=== PATIENT | female | born 1985 | race Caucasian/White ===

== ENCOUNTER 2018-04-15 20:47 | Inpatient (IN) | payer OTHER ==
[2018-04-15] MEDS ORDERED: Oxytocin 10 Units/1 ML SDV ONE (20:56)
--- NOTE | 2018-04-15 21:57 | PCM.DEL ---
L & D Note - General Info Date of Service: 04/15/18 - Delivery Note Labor: Spontaneous Delivery Outcome: Livebirth Infant Delivery Method: Spontaneous Vaginal Delivery-Single Infant Delivery Mode: Spontaneous Presentation: Vertex Nuchal Cord: None Prep: Other Anesthesia Type: None Amniotic Fluid Description: Clear Episiotomy Type: None Laceration: None Placenta: Intact Cord: 3 Vessels Estimated Blood Loss: 100 Score 1 min: 9 Score 5 min: 9 - General Info Date of Service: 04/15/18 - Patient Data Med Orders - Current: Current Medications Discontinued Medications Oxytocin (Pitocin) Confirm Administered Dose 10 unit .ROUTE .STK-MED ONE Stop: 04/15/18 20:57 - Problem List & Annotations (1) Vaginal delivery SNOMED Code(s): 969415536 Code(s): O80 - ENCOUNTER FOR FULL-TERM UNCOMPLICATED DELIVERY Status: Acute Current Visit: No - Problem List Review Problem List Initiated/Reviewed/Updated: Yes
[2018-04-15] MEDS ORDERED: oxyCODONE 5 MG Tab PO PRN ×2 (21:58→22:14)
[2018-04-15] MEDS ORDERED: Ibuprofen 800 MG Tab PO PRN (21:58)
[2018-04-15] MEDS ORDERED: Lanolin 100% Cream 7 GM Tube TOP PRN (21:58)
[2018-04-15] MEDS ORDERED: Ibuprofen 400 MG Tab PO PRN (21:58)
[2018-04-15] MEDS ORDERED: Docusate Sodium 100 MG Cap PO PRN (21:58)
[2018-04-15] MEDS ORDERED: Bisacodyl 10 MG Supp RECTAL PRN (21:58)
[2018-04-15] MEDS ORDERED: Acetaminophen 500 MG Tab PO PRN ×2 (21:58)
[2018-04-15] MEDS ORDERED: Witch Hazel Medicated Pads 40/Jar TOP PRN (21:58)
[2018-04-15] MEDS ORDERED: Benzocaine/Menthol 20%-0.5% Spray 78 GM Cannister TOP PRN (21:58)
[2018-04-15] MEDS ORDERED: Sodium Chloride 0.9% 2.5 ML Syringe FLUSH PRN (21:59)
[2018-04-15] MEDS ORDERED: Misoprostol 200 MCG Tab PO PRN (21:59)
[2018-04-15] MEDS ORDERED: Sodium Chloride 0.9% 10 ML Syringe FLUSH PRN (21:59)
[2018-04-15] MEDS ORDERED: Nalbuphine 10 MG/1 ML Vial IVPUSH PRN (21:59)
[2018-04-15] MEDS ORDERED: Butorphanol 1 MG/ML SDV IVPUSH PRN (21:59)
[2018-04-15] MEDS ORDERED: Tranexamic Acid 1,000 MG in Sodium Chloride 0.9% 100 ML IV PRN (21:59)
[2018-04-15] MEDS ORDERED: Methylergonovine 0.2 MG/1 ML Amp IM PRN (21:59)
[2018-04-15] MEDS ORDERED: Carboprost Tromethamine 250 MCG/1 ML Amp IM PRN (21:59)
[2018-04-15] MEDS ORDERED: Lidocaine 1% 50 ML MDV INJECT PRN (21:59)
[2018-04-15] MEDS ORDERED: Water For Irrigation,Sterile 1,000 ML Container IRR PRN (21:59)
[2018-04-15] MEDS ORDERED: Oxytocin/0.9 % Sodium Chloride 30 UNIT/500 ML BAG IV SCH (22:00)
[2018-04-15] MEDS ORDERED: Lactated Ringers 1,000 ML IV SCH (22:00)
--- NOTE | 2018-04-16 04:30 | OR ---
SURGEON: Mayte Palomares MD DATE OF PROCEDURE: 04/15/2018 PREOPERATIVE DIAGNOSES: 1. Term at 39 weeks and 4 days' gestation. 2. Spontaneous labor. POSTOPERATIVE DIAGNOSES: 1. Term at 39 weeks and 4 days' gestation. 2. Spontaneous labor. 3. Delivered. PROCEDURE: Spontaneous vaginal delivery. ANESTHESIA: None. ESTIMATED BLOOD LOSS: 100 mL. COMPLICATIONS: None. DISPOSITION: Mother and baby stable in Labor and Delivery room. FINDINGS: Female , weight 3080 g, score 9 and 9 at one and five minutes respectively. Grossly normal placenta with three-vessel cord. Intact perineum. BRIEF HISTORY AND DESCRIPTION OF PROCEDURE: Susanne is a 32-year-old, G3, P1-0-1-1, 39 weeks and 4 days' gestation who presented to Labor and Delivery at 2045 hours on 04/15/18 in spontaneous active labor, reporting spontaneous rupture of membrane which occurred in the car 10 minutes prior to admission. On arrival to Labor and Delivery, she was examined by the RN, and she was found to be fully dilated with the head at station +3. Her care is uncomplicated.GBS negative. I was called at 2046 hours and upon my arrival at 2057 hours, the patient had delivered at 0 hours, so she delivered approximately 5 minutes upon arrival to Labor and Delivery. The delivery was attended to by the RN, who reported that the delivery was uncomplicated, no nuchal cord, anterior and posterior shoulders delivered without difficulty and the baby was vigorous and cried spontaneously at . The patient had received a dose of oxytocin 10IU IM by the time I arrived. I examined her and delivered placenta by controlled cord traction, appeared to be complete and intact. Uterine massage was performed.The uterus was found to be well contracted below the umbilicus. Examination of the perineum revealed no lacerations. Mother and baby were stable in Labor and Delivery room, bonding. TYRELUMVIV / YSBAELL /[id number] MTDD
--- NOTE | 2018-04-16 08:15 | PCM.PNPP ---
<Clare Brito - Last Filed: 04/16/18 08:11> - General Info Date of Service: 04/16/18 Functional Status: Reports: Pain Controlled, Tolerating Diet, Ambulating, Urinating - Review of Systems General: Denies: Fever, Weakness, Fatigue Pulmonary: Denies: Shortness of Breath, Pleuritic Chest Pain, Cough Cardiovascular: Denies: Chest Pain, Palpitations, Dyspnea on Exertion Gastrointestinal: Denies: Abdominal Pain Genitourinary: Denies: Dysuria - General Info Date of Service: 04/16/18 - Patient Data Vital Signs - Most Recent: Last Vital Signs Temp 36.7 C 04/16/18 04:00 Pulse 79 04/16/18 04:00 Resp 16 04/16/18 04:00 BP 108/68 04/16/18 04:00 Pulse Ox 98 04/16/18 04:00 Weight - Most Recent: 184 lb Lab Results - Last 24 Hours: Laboratory Results - last 24 hr 04/15/18 04/15/18 04/16/18 Range/Units 21:14 21:30 05:05 Hgb 11.6 L (12.0-16.0) g/dL Hct 34.3 L (36.0-46.0) % Blood Type A NEGATIVE Antibody Screen NEGATIVE Rhogam Indicated NO, MOM+BABY RH NEG Med Orders - Current: Current Medications Acetaminophen (Tylenol Extra Strength) 500 mg PO Q4H PRN PRN Reason: Pain Acetaminophen (Tylenol Extra Strength) 1,000 mg PO Q4H PRN PRN Reason: Pain Benzocaine/Menthol (Dermoplast Pain Relief 20%-0.5% [place]) 78 gm TOP ASDIRECTED PRN PRN Reason: Perineal Comfort Measure Bisacodyl (Dulcolax) 10 mg RECTAL ONETIME PRN PRN Reason: Constipation Docusate Sodium (Colace) 100 mg PO BID PRN PRN Reason: Constipation Last Admin: 04/16/18 08:07 Dose: 100 mg Emollient Ointment (Lansinoh Hpa) 0 gm TOP ASDIRECTED PRN PRN Reason: Sore Nipples Ibuprofen (Motrin) 400 mg PO Q4H PRN PRN Reason: Pain Ibuprofen (Motrin) 800 mg PO Q6H PRN PRN Reason: Pain Oxycodone HCl (Oxycodone) 5 mg PO Q2H PRN PRN Reason: PAIN Witch Greta (Tucks) 1 pad TOP ASDIRECTED PRN PRN Reason: comfort care Discontinued Medications Butorphanol Tartrate (Stadol) 1 mg IVPUSH Q1H PRN PRN Reason: Pain Carboprost Tromethamine (Hemabate Ds) 250 mcg IM ASDIRECTED PRN PRN Reason: Post Hemorrhage Lactated Ringer's (Ringers, Lactated) 1,000 mls @ 150 mls/hr IV ASDIRECTED ESTELLE Oxytocin/Sodium Chloride (Oxytocin 30 Unit/500 Ml-Ns) 30 unit in 500 mls @ 999 mls/hr IV TITRATE ESTELLE Tranexamic Acid 1,000 mg/ (Sodium Chloride) 110 mls @ 660 mls/hr IV ONETIME PRN PRN Reason: Bleeding Lidocaine HCl (Xylocaine 1%) 50 ml INJECT ONETIME PRN PRN Reason: Laceration repair Methylergonovine Maleate (Methergine) 0.2 mg IM ASDIRECTED PRN PRN Reason: Post Hemorrhage Misoprostol (Cytotec) 200 mcg PO ONETIME PRN PRN Reason: Post Hemorrhage Nalbuphine HCl (Nubain) 10 mg IVPUSH Q1H PRN PRN Reason: Pain (severe 7-10) Oxycodone HCl (Oxycodone) 5 mg PO Q2H PRN PRN Reason: Pain Oxytocin (Pitocin) Confirm Administered Dose 10 unit .ROUTE .[facility]-MED ONE Stop: 04/15/18 20:57 Last Admin: 04/15/18 21:00 Dose: 10 unit Sodium Chloride (Saline Flush) 10 ml FLUSH ASDIRECTED PRN PRN Reason: Keep Vein Open Sodium Chloride (Saline Flush) 2.5 ml FLUSH ASDIRECTED PRN PRN Reason: Keep Vein Open Sterile Water (Sterile Water For Irrigation) 1,000 ml IRR ASDIRECTED PRN PRN Reason: delivery - Infant Interaction Disposition, : in Room with Family Interaction: Holding Feeding: Attempted ; Nursed Fair/Poor Support Person: - Recovery Exam Fundal Tone: Firm Fundal Level: At Umbilicus Fundal Placement: Midline Lochia Color: Rubra/Red Bladder Status: Voiding - Exam General: Alert, Oriented Neck: Supple Lungs: Clear to Auscultation, Normal Respiratory Effort Cardiovascular: Regular Rate, Regular Rhythm GI/Abdominal Exam: Normal Bowel Sounds, Soft, No Distention, No Mass Extremities: Normal Inspection, Normal Range of Motion, Non-Tender, Normal Capillary Refill, Pedal Edema (trace) Skin: Warm, Dry, Intact Psy/Mental Status: Alert, Normal Affect - Problem List & Annotations (1) Vaginal delivery SNOMED Code(s): 018248657 Code(s): O80 - ENCOUNTER FOR FULL-TERM UNCOMPLICATED DELIVERY Status: Acute Current Visit: No - Problem List Review Problem List Initiated/Reviewed/Updated: Yes - Assessment Assessment:: PPD #1 . Minimal pain and lochia. Breast feeding well. Discharge home this evening. - Plan Plan:: Discharge instructions reviewed. Pelvic rest for 6 weeks continue PNV while breast feeding. Can use OTC ibuprofen/tylenol as needed for pain. Instructe patient to call if she develops fever greater than 101 or bleeding through a large pad an hour. F/U with [facility] [place] in 6 weeks. <Mayte Palomares - Last Filed: 04/16/18 08:33> - Patient Data Vital Signs - Most Recent: Last Vital Signs Temp 36.7 C 04/16/18 04:00 Pulse 79 04/16/18 04:00 Resp 16 04/16/18 04:00 BP 108/68 04/16/18 04:00 Pulse Ox 98 04/16/18 04:00 Lab Results - Last 24 Hours: Laboratory Results - last 24 hr 04/15/18 04/15/18 04/16/18 Range/Units 21:14 21:30 05:05 Hgb 11.6 L (12.0-16.0) g/dL Hct 34.3 L (36.0-46.0) % Blood Type A NEGATIVE Antibody Screen NEGATIVE Rhogam Indicated NO, MOM+BABY RH NEG Med Orders - Current: Current Medications Acetaminophen (Tylenol Extra Strength) 500 mg PO Q4H PRN PRN Reason: Pain Acetaminophen (Tylenol Extra Strength) 1,000 mg PO Q4H PRN PRN Reason: Pain Benzocaine/Menthol (Dermoplast Pain Relief 20%-0.5% [place]) 78 gm TOP ASDIRECTED PRN PRN Reason: Perineal Comfort Measure Bisacodyl (Dulcolax) 10 mg RECTAL ONETIME PRN PRN Reason: Constipation Docusate Sodium (Colace) 100 mg PO BID PRN PRN Reason: Constipation Last Admin: 04/16/18 08:07 Dose: 100 mg Emollient Ointment (Lansinoh Hpa) 0 gm TOP ASDIRECTED PRN PRN Reason: Sore Nipples Ibuprofen (Motrin) 400 mg PO Q4H PRN PRN Reason: Pain Ibuprofen (Motrin) 800 mg PO Q6H PRN PRN Reason: Pain Oxycodone HCl (Oxycodone) 5 mg PO Q2H PRN PRN Reason: PAIN Witch Greta (Tucks) 1 pad TOP ASDIRECTED PRN PRN Reason: comfort care Discontinued Medications Butorphanol Tartrate (Stadol) 1 mg IVPUSH Q1H PRN PRN Reason: Pain Carboprost Tromethamine (Hemabate Ds) 250 mcg IM ASDIRECTED PRN PRN Reason: Post Hemorrhage Lactated Ringer's (Ringers, Lactated) 1,000 mls @ 150 mls/hr IV ASDIRECTED ESTELLE Oxytocin/Sodium Chloride (Oxytocin 30 Unit/500 Ml-Ns) 30 unit in 500 mls @ 999 mls/hr IV TITRATE ESTELLE Tranexamic Acid 1,000 mg/ (Sodium Chloride) 110 mls @ 660 mls/hr IV ONETIME PRN PRN Reason: Bleeding Lidocaine HCl (Xylocaine 1%) 50 ml INJECT ONETIME PRN PRN Reason: Laceration repair Methylergonovine Maleate (Methergine) 0.2 mg IM ASDIRECTED PRN PRN Reason: Post Hemorrhage Misoprostol (Cytotec) 200 mcg PO ONETIME PRN PRN Reason: Post Hemorrhage Nalbuphine HCl (Nubain) 10 mg IVPUSH Q1H PRN PRN Reason: Pain (severe 7-10) Oxycodone HCl (Oxycodone) 5 mg PO Q2H PRN PRN Reason: Pain Oxytocin (Pitocin) Confirm Administered Dose 10 unit .ROUTE .STK-MED ONE Stop: 04/15/18 20:57 Last Admin: 04/15/18 21:00 Dose: 10 unit Sodium Chloride (Saline Flush) 10 ml FLUSH ASDIRECTED PRN PRN Reason: Keep Vein Open Sodium Chloride (Saline Flush) 2.5 ml FLUSH ASDIRECTED PRN PRN Reason: Keep Vein Open Sterile Water (Sterile Water For Irrigation) 1,000 ml IRR ASDIRECTED PRN PRN Reason: delivery - Problem List & Annotations (1) Vaginal delivery SNOMED Code(s): 858944109 Code(s): O80 - ENCOUNTER FOR FULL-TERM UNCOMPLICATED DELIVERY Status: Acute Current Visit: No - My Orders Last 24 Hours: My Active Orders 04/15/18 20:45 Patient Status [ADT] Routine 04/15/18 21:58 Acetaminophen [Tylenol Extra Strength] 1,000 mg PO Q4H PRN Acetaminophen [Tylenol Extra Strength] 500 mg PO Q4H PRN Benzocaine/Menthol [Dermoplast Pain Relief 20%-0.5% [place]] 78 gm TOP ASDIRECTED PRN Bisacodyl [Dulcolax] 10 mg RECTAL ONETIME PRN Docusate Sodium [Colace] 100 mg PO BID PRN Ibuprofen [Motrin] 400 mg PO Q4H PRN Ibuprofen [Motrin] 800 mg PO Q6H PRN Lanolin [Lansinoh HPA] See Dose Instructions TOP ASDIRECTED PRN Witch Greta [Tucks] 1 pad TOP ASDIRECTED PRN Breast Pump [WOMSER] Per Unit Routine Resuscitation Status Routine 04/15/18 21:59 Patient Status [ADT] Routine May Shower [RC] ASDIRECTED Notify Provider [RC] PRN Up ad Angeli [RC] ASDIRECTED Vital Signs [RC] PER UNIT ROUTINE Assess Lochia [WOMSER] Per Unit Routine Assess Uterine Involution [WOMSER] Per Unit Routine Scalp Electrode [WOMSER] Per Unit Routine Peripheral IV Discontinue [OM.PC] Routine Peripheral IV Insertion Adult [OM.PC] Routine 04/15/18 22:00 Perineal Care [OM.PC] Per Unit Routine 04/16/18 Breakfast Regular Diet [DIET] - Assessment Assessment:: Patient evaluated independently, agree with above - Plan Plan:: Discharge instructions reviewed. Also discussed S/S of blues vs depression, advised to call with any concerns.
[2018-04-16 18:25] VITALS: BP 115/58
== END 2018-04-16 22:35 | disposition home or self-care (01) | DRG 775 ==
LOC: MW.OBCHECK 20:47 → MW.OB 21:52 → OBSVTOIN 21:52
PROVIDERS: ADMIT Obstetrics & Gynecology; ATTEND Obstetrics & Gynecology
PROC: 10E0XZZ Delivery of Products of Conception, External Approach (ICD-10-PCS; principal; 2018-04-15)
DX: O42.02 Full-term premature rupture of membranes, onset of labor within 24 hours of rupture (principal); Z3A.39 39 weeks gestation of pregnancy; Z37.0 Single live birth
CPT/HCPCS: 36415; 59409; 85014; 85018; 86850; 86900; 86901; A9270-GY; J2590

== ENCOUNTER 2020-09-16 20:13 | Inpatient (IN) | payer OTHER ==
[2020-09-16] MEDS: Lactated Ringers 1,000 ML IV SCH ×2 (20:30→21:10)
[2020-09-16] MEDS ORDERED: Sodium Chloride 0.9% 2.5 ML Syringe FLUSH PRN (20:42)
[2020-09-16] MEDS ORDERED: Methylergonovine 0.2 MG/1 ML Amp IM PRN (20:42)
[2020-09-16] MEDS ORDERED: Water For Irrigation,Sterile 1,000 ML Container IRR PRN (20:42)
[2020-09-16] MEDS ORDERED: Butorphanol 1 MG/ML SDV IVPUSH PRN (20:42)
[2020-09-16] MEDS ORDERED: Tranexamic Acid 1,000 MG in Sodium Chloride 0.9% 100 ML IV PRN (20:42)
[2020-09-16] MEDS ORDERED: Lidocaine 1% 50 ML MDV INJECT PRN (20:42)
[2020-09-16] MEDS ORDERED: Misoprostol 200 MCG Tab PO PRN (20:42)
[2020-09-16] MEDS ORDERED: Sodium Chloride 0.9% 10 ML Syringe FLUSH PRN (20:42)
[2020-09-16] MEDS ORDERED: Sodium Chloride 0.9% 10 ML SDV IV PRN (20:42)
[2020-09-16] MEDS ORDERED: Carboprost Tromethamine 250 MCG/1 ML Amp IM PRN (20:42)
[2020-09-16] MEDS ORDERED: Nalbuphine 10 MG/1 ML Vial IVPUSH PRN (20:42)
[2020-09-16] MEDS ORDERED: Oxytocin/0.9 % Sodium Chloride 30 UNIT/500 ML BAG IV SCH (20:45)
--- NOTE | 2020-09-16 21:02 | PCM.LDHP ---
L&D History of Present Illness - General Date of Service: 09/16/20 Admit Problem/Dx: Patient Status Order with Admit Dx/Problem 09/16/20 20:42 Patient Status [ADT] Routine Admission Diagnosis/Problem Admission Diagnosis/Problem Source of Information: Patient History Limitations: Reports: No Limitations - History of Present Illness Introduction:: 34 year old at 39w4d (LILY 09/19/2020 by LMP c/w 1st trimester US) presents to labor and delivery with regular contractions since 1600 today. Reports contractions q4-6 minutes prior to arrival. Has a history of precipitous delivery. Reports good movement. Denies leaking fluid or vaginal bleeding. 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 Dermatologic History: Reports: Eczema - Past Surgical History Cardiovascular Surgical History: Reports: None Dermatological Surgical History: Reports: None Social & Family History - Family History HEENT: Reports: None Respiratory: Reports: None GI: Reports: None : Reports: None OBGYN: Reports: Musculoskeletal: Reports: None Neurological: Reports: Alzheimers Disease Psychiatric: Reports: None Endocrine/Metabolic: Reports: None Hematologic: Reports: None Immunologic: Reports: None Dermatologic: Reports: None Oncologic: Reports: Leukemia - Caffeine Use Caffeine Use: Reports: Coffee H&P Review of Systems - Review of Systems: Review Of Systems: See Below General: Reports: No Symptoms Pulmonary: Reports: No Symptoms Cardiovascular: Reports: No Symptoms Gastrointestinal: Reports: Abdominal Pain Genitourinary: Reports: No Symptoms Musculoskeletal: Reports: Back Pain Skin: Reports: No Symptoms Psychiatric: Reports: No Symptoms Neurological: Reports: No Symptoms L&D Exam - Exam Exam: See Below - OB Specific Contraction Frequency (min): 4-5 minutes Contraction Intensity: Moderate Movement: Active Heart Tones: Present Heart Tones per Min: 140 Heart Rate (FHR) Variability: Moderate (6-25 bmp) Presentation: Vertex - Boggs Score Boggs Score Cervix Position: Anterior Boggs Score Consistency: Soft Boggs Score Effacement: >80% Boggs Score Dilation: > 5 cm Boggs Score Infant's Station: -1 ,0 Boggs Score Total: 12 - Exam General: Alert Lungs: Normal Respiratory Effort Cardiovascular: Regular Rate GI/Abdominal Exam: Soft, Non-Tender Extremities: Normal Inspection, Non-Tender, No Pedal Edema Skin: Warm, Dry, Intact Psychiatric: Normal Mood - Patient Data Lab Results Last 24 hrs: Laboratory Results - last 24 hr 09/16/20 Range/Units 20:27 WBC 11.17 H (4.0-11.0) K/uL RBC 4.18 L (4.30-5.90) M/uL Hgb 12.9 (12.0-16.0) g/dL Hct 38.9 (36.0-46.0) % MCV 93.1 (80.0-98.0) fL MCH 30.9 (27.0-32.0) pg MCHC 33.2 (31.0-37.0) g/dL RDW Std Deviation 45.4 (28.0-62.0) fl RDW Coeff of Dave 13 (11.0-15.0) % Plt Count 195 (150-400) K/uL MPV 10.60 (7.40-12.00) fL Nucleated RBC % 0.0 /100WBC Nucleated RBCs # 0 K/uL Result Diagrams: 09/16/20 20:27 Problem List Initiated/Reviewed/Updated: Yes Orders Last 24hrs: Active Orders 24 hr Category Date Time Status Patient Status [ADT] Routine ADT 09/16/20 20:42 Active Heart Tones [RC] CONTINUOUS Care 09/16/20 20:42 Active Non Stress Test [RC] PER UNIT ROUTINE Care 09/16/20 20:42 Active May Shower [RC] ASDIRECTED Care 09/16/20 20:42 Active Notify Provider [RC] PRN Care 09/16/20 20:42 Active Up ad Angeli [RC] ASDIRECTED Care 09/16/20 20:42 Active Vaginal Exam [RC] PRN Care 09/16/20 20:42 Active Vital Signs [RC] PER UNIT ROUTINE Care 09/16/20 20:42 Active CORONAVIRUS COVID-19 CHELLE [MOLEC] Routine Lab 09/16/20 20:35 Received RPR (SYPHILIS SERO) W/ RFLX [REF] Routine Lab 09/16/20 20:27 Received TYPE AND SCREEN [BBK] Routine Lab 09/16/20 20:27 Received Butorphanol [Stadol] Med 09/16/20 20:42 Active 1 mg IVPUSH Q1H PRN Carboprost Tromethamine [Hemabate DS] Med 09/16/20 20:42 Active 250 mcg IM ASDIRECTED PRN Lactated Ringers [Ringers, Lactated] 1,000 ml Med 09/16/20 20:45 Active IV ASDIRECTED Lidocaine 1% [Xylocaine 1%] Med 09/16/20 20:42 Active 50 ml INJECT ONETIME PRN Methylergonovine [Methergine] Med 09/16/20 20:42 Active 0.2 mg IM ASDIRECTED PRN Nalbuphine [Nubain] Med 09/16/20 20:42 Active 10 mg IVPUSH Q1H PRN Oxytocin/0.9 % Sodium Chloride [Oxytocin 30 Unit/500 ML Med 09/16/20 20:45 Active -NS] 30 unit in 500 ml IV TITRATE Sodium Chloride 0.9% [Normal Saline] Med 09/16/20 20:42 Active 10 ml IV ASDIRECTED PRN Sodium Chloride 0.9% [Saline Flush] Med 09/16/20 20:42 Active 10 ml FLUSH ASDIRECTED PRN Sodium Chloride 0.9% [Saline Flush] Med 09/16/20 20:42 Active 2.5 ml FLUSH ASDIRECTED PRN Tranexamic Acid [Cyklokapron] 1,000 mg Med 09/16/20 20:42 Active Sodium Chloride 0.9% [Normal Saline] 100 ml IV ONETIME Water For Irrigation,Sterile [Sterile Water for Med 09/16/20 20:42 Active Irrigation] 1,000 ml IRR ASDIRECTED PRN miSOPROStoL [Cytotec] Med 09/16/20 20:42 Active 200 mcg PO ONETIME PRN Scalp Electrode [WOMSER] Per Unit Routine Oth 09/16/20 20:42 Ordered Peripheral IV Insertion Adult [OM.PC] Routine Oth 09/16/20 20:42 Ordered Resuscitation Status Routine Resus Stat 09/16/20 20:42 Ordered Medication Orders Butorphanol Tartrate (Stadol) 1 mg IVPUSH Q1H PRN PRN Reason: Pain Carboprost Tromethamine (Hemabate Ds) 250 mcg IM ASDIRECTED PRN PRN Reason: Post Hemorrhage Oxytocin/Sodium Chloride (Oxytocin 30 Unit/500 Ml-Ns) 30 unit in 500 mls @ 999 mls/hr IV TITRATE ESTELLE Tranexamic Acid 1,000 mg/ (Sodium Chloride) 110 mls @ 660 mls/hr IV ONETIME PRN PRN Reason: Bleeding Lactated Ringer's (Ringers, Lactated) 1,000 mls @ 150 mls/hr IV ASDIRECTED ESTELLE Lidocaine HCl (Xylocaine 1%) 50 ml INJECT ONETIME PRN PRN Reason: Laceration repair Methylergonovine Maleate (Methergine) 0.2 mg IM ASDIRECTED PRN PRN Reason: Post Hemorrhage Misoprostol (Cytotec) 200 mcg PO ONETIME PRN PRN Reason: Post Hemorrhage Nalbuphine HCl (Nubain) 10 mg IVPUSH Q1H PRN PRN Reason: Pain (severe 7-10) Sodium Chloride (Saline Flush) 10 ml FLUSH ASDIRECTED PRN PRN Reason: Keep Vein Open Sodium Chloride (Saline Flush) 2.5 ml FLUSH ASDIRECTED PRN PRN Reason: Keep Vein Open Sodium Chloride (Normal Saline) 10 ml IV ASDIRECTED PRN PRN Reason: IV Use Sterile Water (Sterile Water For Irrigation) 1,000 ml IRR ASDIRECTED PRN PRN Reason: delivery Assessment/Plan Comment:: 34 year old at 39w4d (LILY 09/19/2020 by LMP c/w 1st trimester US) in spontaneous labor * Admit to labor and delivery * Rh negative, rubella immune, GBS negative * Patient desires epidural for pain management if able * Membranes intact, will avoid AROM at this time pending COVID-19 testing and epidural Dispo: stable. Anticipate spontaneous labor and vaginal delivery.
[2020-09-16] MEDS ORDERED: fentaNYL 100 MCG/2 ML SDV ONE (21:22)
[2020-09-16] MEDS ORDERED: Ropivacaine HCl/PF 100 ML ONE (21:22)
--- NOTE | 2020-09-16 21:42 | PCM.PREANE ---
Preanesthetic Assessment - Anesthesia/Transfusion/Family Hx Anesthesia History: Prior Anesthesia Without Reaction Family History of Anesthesia Reaction: No Transfusion History: No Prior Transfusion(s) - Physical Assessment NPO Status Date: 09/16/20 NPO Status Time: 18:00 Height: 1.63 m Weight: 86.636 kg ASA Class: 2 - Lab Values: Laboratory Last Values WBC 11.17 K/uL (4.0-11.0) H 09/16/20 20:27 RBC 4.18 M/uL (4.30-5.90) L 09/16/20 20:27 Hgb 12.9 g/dL (12.0-16.0) 09/16/20 20:27 Hct 38.9 % (36.0-46.0) 09/16/20 20:27 MCV 93.1 fL (80.0-98.0) 09/16/20 20:27 MCH 30.9 pg (27.0-32.0) 09/16/20 20: MCHC 33.2 g/dL (31.0-37.0) 09/16/20 20:27 RDW Std Deviation 45.4 fl (28.0-62.0) 09/16/20 20:27 RDW Coeff of Dave 13 % (11.0-15.0) 09/16/20 20:27 Plt Count 195 K/uL (150-400) 09/16/20 20:27 MPV 10.60 fL (7.40-12.00) 09/16/20 20:27 Nucleated RBC % 0.0 /100WBC 09/16/20 20:27 Nucleated RBCs # 0 K/uL 09/16/20 20:27 SARS-CoV-2 RNA (CHELLE) NEGATIVE (NEGATIVE) 09/16/20 20:35 - Allergies Allergies/Adverse Reactions: Allergies Allergy/AdvReac Type Severity Reaction Status Date / Time latex Allergy Itching Verified 05/16/14 12:24 - Acknowledgements Anesthesia Type Planned: Epidural Pt an Appropriate Candidate for the Planned Anesthesia: Yes Alternatives and Risks of Anesthesia Discussed w Pt/Guardian: Yes Pt/Guardian Understands and Agrees with Anesthesia Plan: Yes PreAnesthesia Questionnaire Cardiovascular History: Reports: Heart Murmur 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 Dermatologic History: Reports: Eczema - Past Surgical History Cardiovascular Surgical History: Reports: None Dermatological Surgical History: Reports: None - HOME MEDS Home Medications: Home Meds Magnesium 500 mg PO BEDTIME 09/16/20 [History] Pnv No.95/Ferrous Fum/Folic AC [ Tablet] 1 tab PO BEDTIME 09/16/20 [History] - CURRENT (IN HOUSE) MEDS Current Meds: Current Medications Butorphanol Tartrate (Stadol) 1 mg IVPUSH Q1H PRN PRN Reason: Pain Carboprost Tromethamine (Hemabate Ds) 250 mcg IM ASDIRECTED PRN PRN Reason: Post Hemorrhage Oxytocin/Sodium Chloride (Oxytocin 30 Unit/500 Ml-Ns) 30 unit in 500 mls @ 999 mls/hr IV TITRATE ESTELLE Tranexamic Acid 1,000 mg/ (Sodium Chloride) 110 mls @ 660 mls/hr IV ONETIME PRN PRN Reason: Bleeding Lactated Ringer's (Ringers, Lactated) 1,000 mls @ 150 mls/hr IV ASDIRECTED ESTELLE Last Admin: 09/16/20 21:10 Dose: 150 mls/hr Documented by: Lidocaine HCl (Xylocaine 1%) 50 ml INJECT ONETIME PRN PRN Reason: Laceration repair Methylergonovine Maleate (Methergine) 0.2 mg IM ASDIRECTED PRN PRN Reason: Post Hemorrhage Misoprostol (Cytotec) 200 mcg PO ONETIME PRN PRN Reason: Post Hemorrhage Nalbuphine HCl (Nubain) 10 mg IVPUSH Q1H PRN PRN Reason: Pain (severe 7-10) Sodium Chloride (Saline Flush) 10 ml FLUSH ASDIRECTED PRN PRN Reason: Keep Vein Open Sodium Chloride (Saline Flush) 2.5 ml FLUSH ASDIRECTED PRN PRN Reason: Keep Vein Open Sodium Chloride (Normal Saline) 10 ml IV ASDIRECTED PRN PRN Reason: IV Use Sterile Water (Sterile Water For Irrigation) 1,000 ml IRR ASDIRECTED PRN PRN Reason: delivery Discontinued Medications Fentanyl (Sublimaze) Confirm Administered Dose 100 mcg .ROUTE .[facility]-MED ONE Stop: 01/17/21 21:23 Ropivacaine (Naropin 0.2%) Confirm Administered Dose 100 mls @ as directed .ROUTE .[facility] ONE Stop: 09/16/20 21:23
--- NOTE | 2020-09-16 21:46 | PCM.PRNOTE ---
- Free Text/Narrative Note: Anes Note Patient requests epidural for L&D. Sitting position, level L3-L4 midlien approach. Sterile technique. Chloraprep scrub to lumbar area. Sterile fenestrated drape applied. Epidural space easily achieved single attempt eith ease using KERRI technique. KERRI at 3 cm. Cath threaded 5 cm with ease. Sterile clear adhesive dressing applied. 2131 Test 3 cc 1.5% lido with epi negative. 2134 Load 10 cc 0.2% ropiviciane with 1 mcg cc fentanyl added in slow divided doses. 2138 Pump started wtih 90 cc same solution. Rate is 8 cc hr with 6 cc q 20 min prn bolus. Louis well. Time with patient Lucas Alvarez DIE POLISHER
[2020-09-17] MEDS ORDERED: Witch Hazel Medicated Pads 40/Jar TOP PRN (01:43)
[2020-09-17] MEDS ORDERED: Lanolin 100% Cream 7 GM Tube TOP PRN (01:43)
[2020-09-17] MEDS ORDERED: oxyCODONE 5 MG Tab PO PRN (01:43)
[2020-09-17] MEDS ORDERED: Acetaminophen 500 MG Tab PO PRN ×2 (01:43)
[2020-09-17] MEDS ORDERED: Ibuprofen 800 MG Tab PO PRN (01:43)
[2020-09-17] MEDS ORDERED: Bisacodyl 10 MG Supp RECTAL PRN (01:43)
[2020-09-17] MEDS ORDERED: Ibuprofen 400 MG Tab PO PRN (01:43)
[2020-09-17] MEDS ORDERED: Docusate Sodium 100 MG Cap PO PRN (01:43)
[2020-09-17] MEDS ORDERED: Benzocaine/Menthol 20%-0.5% Spray 78 GM Cannister TOP PRN (01:43)
--- NOTE | 2020-09-17 01:52 | PCM.DEL ---
L & D Note - General Info Date of Service: 09/17/20 Mother's Due Date: 09/19/20 - Delivery Note Labor: Spontaneous Delivery Method: Spontaneous Vaginal Delivery-Single Presentation: Vertex Nuchal Cord: Present (x1, delivered through) Anesthesia Type: Epidural Amniotic Fluid Description: Meconium Stained Episiotomy Type: None Laceration: None Placenta: Intact, Spontaneous Cord: 3 Vessels Estimated Blood Loss: 150 Resuscitation Needed: No [place]: Bulb Syringe, Warmed, [place] Used Score 1 min: 8 Score 5 min: 9 Delivery Comments (Free Text/Narrative):: Dictation #[id number] - General Info Date of Service: 09/17/20 Admission Dx/Problem (Free Text): Patient Status Order with Admit Dx/Problem 09/16/20 20:42 Patient Status [ADT] Routine Admission Diagnosis/Problem Admission Diagnosis/Problem - Patient Data Weight - Most Recent: 191 lb Lab Results Last 24 Hours: Laboratory Results - last 24 hr 09/16/20 09/16/20 09/16/20 Range/Units 20:27 20:27 20:35 WBC 11.17 H (4.0-11.0) K/uL RBC 4.18 L (4.30-5.90) M/uL Hgb 12.9 (12.0-16.0) g/dL Hct 38.9 (36.0-46.0) % MCV 93.1 (80.0-98.0) fL MCH 30.9 (27.0-32.0) pg MCHC 33.2 (31.0-37.0) g/dL RDW Std Deviation 45.4 (28.0-62.0) fl RDW Coeff of Dave 13 (11.0-15.0) % Plt Count 195 (150-400) K/uL MPV 10.60 (7.40-12.00) fL Nucleated RBC % 0.0 /100WBC Nucleated RBCs # 0 K/uL SARS-CoV-2 RNA (CHELLE) NEGATIVE (NEGATIVE) Blood Type A NEGATIVE Antibody Screen POSITIVE Antibody Identification Anti-D Med Orders - Current: Current Medications Butorphanol Tartrate (Stadol) 1 mg IVPUSH Q1H PRN PRN Reason: Pain Carboprost Tromethamine (Hemabate Ds) 250 mcg IM ASDIRECTED PRN PRN Reason: Post Hemorrhage Oxytocin/Sodium Chloride (Oxytocin 30 Unit/500 Ml-Ns) 30 unit in 500 mls @ 999 mls/hr IV TITRATE [facility] Tranexamic Acid 1,000 mg/ (Sodium Chloride) 110 mls @ 660 mls/hr IV ONETIME PRN PRN Reason: Bleeding Lactated Ringer's (Ringers, Lactated) 1,000 mls @ 150 mls/hr IV ASDIRECTED [facility] Last Admin: 09/16/20 21:10 Dose: 150 mls/hr Documented by: Lidocaine HCl (Xylocaine 1%) 50 ml INJECT ONETIME PRN PRN Reason: Laceration repair Methylergonovine Maleate (Methergine) 0.2 mg IM ASDIRECTED PRN PRN Reason: Post Hemorrhage Misoprostol (Cytotec) 200 mcg PO ONETIME PRN PRN Reason: Post Hemorrhage Nalbuphine HCl (Nubain) 10 mg IVPUSH Q1H PRN PRN Reason: Pain (severe 7-10) Sodium Chloride (Saline Flush) 10 ml FLUSH ASDIRECTED PRN PRN Reason: Keep Vein Open Sodium Chloride (Saline Flush) 2.5 ml FLUSH ASDIRECTED PRN PRN Reason: Keep Vein Open Sodium Chloride (Normal Saline) 10 ml IV ASDIRECTED PRN PRN Reason: IV Use Sterile Water (Sterile Water For Irrigation) 1,000 ml IRR ASDIRECTED PRN PRN Reason: delivery Discontinued Medications Fentanyl (Sublimaze) Confirm Administered Dose 100 mcg .ROUTE .STK-MED ONE Stop: 09/16/20 21:23 Last Admin: 09/16/20 22:36 Dose: Not Given Documented by: Ropivacaine (Naropin 0.2%) Confirm Administered Dose 100 mls @ as directed .ROUTE .STK-MED ONE Stop: 09/16/20 21:23 Last Admin: 09/16/20 22:36 Dose: Not Given Documented by: - Problem List Review Problem List Initiated/Reviewed/Updated: Yes - My Orders Last 24 Hours: My Active Orders 09/16/20 20:27 RPR (SYPHILIS SERO) W/ RFLX [REF] Routine 09/16/20 20:42 Patient Status [ADT] Routine Heart Tones [RC] CONTINUOUS Non Stress Test [RC] PER UNIT ROUTINE May Shower [RC] ASDIRECTED Notify Provider [RC] PRN Up ad Angeli [RC] ASDIRECTED Vaginal Exam [RC] PRN Vital Signs [RC] PER UNIT ROUTINE Butorphanol [Stadol] 1 mg IVPUSH Q1H PRN Carboprost Tromethamine [Hemabate DS] 250 mcg IM ASDIRECTED PRN Lidocaine 1% [Xylocaine 1%] 50 ml INJECT ONETIME PRN Methylergonovine [Methergine] 0.2 mg IM ASDIRECTED PRN Nalbuphine [Nubain] 10 mg IVPUSH Q1H PRN Sodium Chloride 0.9% [Normal Saline] 10 ml IV ASDIRECTED PRN Sodium Chloride 0.9% [Saline Flush] 10 ml FLUSH ASDIRECTED PRN Sodium Chloride 0.9% [Saline Flush] 2.5 ml FLUSH ASDIRECTED PRN Tranexamic Acid [Cyklokapron] 1,000 mg Sodium Chloride 0.9% [Normal Saline] 100 ml IV ONETIME Water For Irrigation,Sterile [Sterile Water for Irrigation] 1,000 ml IRR ASDIRECTED PRN miSOPROStoL [Cytotec] 200 mcg PO ONETIME PRN Scalp Electrode [WOMSER] Per Unit Routine Peripheral IV Insertion Adult [OM.PC] Routine Resuscitation Status Routine 09/16/20 20:45 Lactated Ringers [Ringers, Lactated] 1,000 ml IV ASDIRECTED Oxytocin/0.9 % Sodium Chloride [Oxytocin 30 Unit/500 ML-NS] 30 unit in 500 ml IV TITRATE 09/17/20 01:43 Acetaminophen [Tylenol Extra Strength] 1,000 mg PO Q4H PRN Acetaminophen [Tylenol Extra Strength] 500 mg PO Q4H PRN Benzocaine/Menthol [Dermoplast Pain Relief 20%-0.5% [place]] 78 gm TOP ASDIRECTED PRN Docusate Sodium [Colace] 100 mg PO BID PRN Ibuprofen [Motrin] 400 mg PO Q4H PRN Ibuprofen [Motrin] 800 mg PO Q6H PRN Lanolin [Lansinoh HPA] See Dose Instructions TOP ASDIRECTED PRN bisacodyL [Dulcolax] 10 mg RECTAL ONETIME PRN oxyCODONE 5 mg PO Q2H PRN witch [place] [Tucks] 1 pad TOP ASDIRECTED PRN 09/17/20 01:44 Patient Status [ADT] Routine May Shower [RC] ASDIRECTED Up ad Angeli [RC] ASDIRECTED Vital Signs [RC] PER UNIT ROUTINE Assess Lochia [WOMSER] Per Unit Routine Assess Uterine Involution [WOMSER] Per Unit Routine Peripheral IV Discontinue [OM.PC] Routine 09/18/20 05:11 HEMOGLOBIN/HEMATOCRIT,HH [HEME] Timed - Assessment Assessment:: 34 year old s/p spontaneous vaginal delivery - Plan Plan:: Routine cares * Rh negative, rubella immune, GBS negative * COVID-19 negative * Encourage ambulation and fluid intake today * Regular diet as tolerated * PO pain medication ordered PRN * , nursing assistance as needed Dispo: stable. Anticipate routine course.
--- NOTE | 2020-09-17 02:52 | OR ---
SURGEON: GALILEA MARK MD DATE OF PROCEDURE: 09/17/2020 PREOPERATIVE DIAGNOSES: 1. Term intrauterine at 39 weeks and 5 days. 2. Spontaneous labor. POSTOPERATIVE DIAGNOSES: 1. Term intrauterine at 39 weeks and 5 days. 2. Spontaneous labor. PROCEDURE: Spontaneous vaginal delivery. ANESTHESIA: Epidural. COMPLICATIONS: None known. ESTIMATED BLOOD LOSS: 150 mL. INDICATIONS: A 34-year-old, 4, para 2-0-1-2, who presented to Labor and Delivery at 39 weeks and 4 days with spontaneous labor. Upon arrival to Labor and Delivery, she was 6 cm dilated with bulging membranes. FINDINGS: Normal-appearing female infant, cephalic presentation. Meconium-stained amniotic fluid. Nuchal cord x1. scores of 8 and 9. Weight not yet available at the time of dictation. Intact perineum. DESCRIPTION OF PROCEDURE: The patient was admitted to Labor and Delivery upon arrival in spontaneous labor. She received an epidural for pain management and received great relief. Labor continued spontaneously over the next few hours. Spontaneous rupture of membranes was noted at approximately 2242 with small amount of clear fluid noted and cervix was noted to be 8 cm, 100% effaced, and zero station. The patient progressed to complete dilation and +2 station shortly after 0115 on 09/17/2020, and I was called to the room for delivery. Dark meconium-stained fluid was noted at that time. The patient initiated pushing efforts and delivered a female atraumatically at 0132. A tight single nuchal cord was noted during the delivery of the , and the infant was delivered through the cord. Nose and mouth were suctioned with bulb and readily had good crying efforts. Infant was placed on maternal abdomen, and cord was clamped and cut after approximately 2 minute and pulsating had ceased. Arterial and venous cord blood gases were obtained from the umbilical cord. The placenta then delivered spontaneously intact. Three-vessel cord noted. The perineum, vaginal wall, and cervix were then inspected, and no lacerations were noted. The patient tolerated the procedure well. Sponge, lap, and needle count were correct, and mother and infant recovering in Labor and Delivery room at this time. JANESSA / RAUL /[id number] KULWINDER
--- NOTE | 2020-09-17 06:49 | PCM48HPAN ---
Post Anesthesia Note - EVALUATION WITHIN 48HRS OF ANESTHETIC Vital Signs in Normal Range: Yes Patient Participated in Evaluation: Yes Respiratory Function Stable: Yes Airway Patent: Yes Cardiovascular Function Stable: Yes Hydration Status Stable: Yes Pain Control Satisfactory: Yes Nausea and Vomiting Control Satisfactory: Yes Mental Status Recovered: Yes
--- NOTE | 2020-09-17 08:52 | PCM.PNPP ---
- General Info Date of Service: 09/17/20 Functional Status: Reports: Pain Controlled, Tolerating Diet, Ambulating, Urinating - Review of Systems General: Denies: Fever, Weakness, Fatigue Pulmonary: Denies: Shortness of Breath Cardiovascular: Denies: Chest Pain, Palpitations, Lightheadedness Gastrointestinal: Denies: Abdominal Pain, Nausea, Vomiting Genitourinary: Denies: Flank Pain Skin: Reports: No Symptoms Neurological: Reports: No Symptoms Psychiatric: Reports: No Symptoms - General Info Date of Service: 09/17/20 - Patient Data Vital Signs - Most Recent: Last Vital Signs Temp 36.4 C 09/17/20 08:17 Pulse 94 09/17/20 08:17 Resp 18 09/17/20 08:17 BP 100/66 09/17/20 08:17 Pulse Ox 97 09/17/20 08:17 Weight - Most Recent: 86.636 kg I&O - Last 24 Hours: Intake & Output 09/16/20 09/17/20 09/17/20 22:59 06:59 14:59 Output Total 850 Balance -850 Lab Results - Last 24 Hours: Laboratory Results - last 24 hr 09/16/20 09/16/20 09/16/20 Range/Units 20:27 20:27 20:35 WBC 11.17 H (4.0-11.0) K/uL RBC 4.18 L (4.30-5.90) M/uL Hgb 12.9 (12.0-16.0) g/dL Hct 38.9 (36.0-46.0) % MCV 93.1 (80.0-98.0) fL MCH 30.9 (27.0-32.0) pg MCHC 33.2 (31.0-37.0) g/dL RDW Std Deviation 45.4 (28.0-62.0) fl RDW Coeff of Dave 13 (11.0-15.0) % Plt Count 195 (150-400) K/uL MPV 10.60 (7.40-12.00) fL Nucleated RBC % 0.0 /100WBC Nucleated RBCs # 0 K/uL SARS-CoV-2 RNA (CHELLE) NEGATIVE (NEGATIVE) Blood Type A NEGATIVE Antibody Screen POSITIVE Antibody Identification Anti-D Med Orders - Current: Current Medications Acetaminophen (Tylenol Extra Strength) 500 mg PO Q4H PRN PRN Reason: Pain Acetaminophen (Tylenol Extra Strength) 1,000 mg PO Q4H PRN PRN Reason: Pain Benzocaine/Menthol (Dermoplast Pain Relief 20%-0.5% [place]) 78 gm TOP ASDIRECTED PRN PRN Reason: Perineal Comfort Measure Last Admin: 09/17/20 03:53 Dose: 1 can Documented by: Bisacodyl (Dulcolax) 10 mg RECTAL ONETIME PRN PRN Reason: Constipation Butorphanol Tartrate (Stadol) 1 mg IVPUSH Q1H PRN PRN Reason: Pain Carboprost Tromethamine (Hemabate Ds) 250 mcg IM ASDIRECTED PRN PRN Reason: Post Hemorrhage Docusate Sodium (Colace) 100 mg PO BID PRN PRN Reason: Constipation Emollient Ointment (Lansinoh Hpa) 0 gm TOP ASDIRECTED PRN PRN Reason: Sore Nipples Oxytocin/Sodium Chloride (Oxytocin 30 Unit/500 Ml-Ns) 30 unit in 500 mls @ 999 mls/hr IV TITRATE [facility] Last Admin: 09/17/20 01:34 Dose: 999 mls/hr Documented by: Tranexamic Acid 1,000 mg/ (Sodium Chloride) 110 mls @ 660 mls/hr IV ONETIME PRN PRN Reason: Bleeding Lactated Ringer's (Ringers, Lactated) 1,000 mls @ 150 mls/hr IV ASDIRECTED [facility] Last Admin: 09/16/20 21:10 Dose: 150 mls/hr Documented by: Ibuprofen (Motrin) 400 mg PO Q4H PRN PRN Reason: Pain Ibuprofen (Motrin) 800 mg PO Q6H PRN PRN Reason: Pain Lidocaine HCl (Xylocaine 1%) 50 ml INJECT ONETIME PRN PRN Reason: Laceration repair Methylergonovine Maleate (Methergine) 0.2 mg IM ASDIRECTED PRN PRN Reason: Post Hemorrhage Misoprostol (Cytotec) 200 mcg PO ONETIME PRN PRN Reason: Post Hemorrhage Nalbuphine HCl (Nubain) 10 mg IVPUSH Q1H PRN PRN Reason: Pain (severe 7-10) Oxycodone HCl (Oxycodone) 5 mg PO Q2H PRN PRN Reason: Pain Sodium Chloride (Saline Flush) 10 ml FLUSH ASDIRECTED PRN PRN Reason: Keep Vein Open Sodium Chloride (Saline Flush) 2.5 ml FLUSH ASDIRECTED PRN PRN Reason: Keep Vein Open Sodium Chloride (Normal Saline) 10 ml IV ASDIRECTED PRN PRN Reason: IV Use Sterile Water (Sterile Water For Irrigation) 1,000 ml IRR ASDIRECTED PRN PRN Reason: delivery Witch Greta (Tucks) 1 pad TOP ASDIRECTED PRN PRN Reason: comfort care Last Admin: 09/17/20 03:52 Dose: 1 tub Documented by: Discontinued Medications Fentanyl (Sublimaze) Confirm Administered Dose 100 mcg .ROUTE .STK-MED ONE Stop: 09/16/20 21:23 Last Admin: 09/16/20 22:36 Dose: Not Given Documented by: Ropivacaine (Naropin 0.2%) Confirm Administered Dose 100 mls @ as directed .ROUTE .STK-MED ONE Stop: 09/16/20 21:23 Last Admin: 09/16/20 22:36 Dose: Not Given Documented by: - Interaction Disposition, : [place] in Room with Family Support Person: - Recovery Exam Fundal Tone: Firm Fundal Level: 1 Fingerbreadths Below Umbilicus Fundal Placement: Midline Lochia Amount: Scant, Small Lochia Color: Rubra/Red Perineum Description: Intact, Minimal Bruising/Swelling Bladder Status: Voiding Urinary Elimination: Voided - Exam General: Alert, Oriented Lungs: Normal Respiratory Effort Cardiovascular: Regular Rate, Regular Rhythm GI/Abdominal Exam: Normal Bowel Sounds, Soft, Non-Tender Extremities: Pedal Edema (trrace). No: Eugene's Sign Skin: Warm, Dry, Intact Neurological: No New Focal Deficit Psy/Mental Status: Alert, Normal Affect, Normal Mood - Problem List & Annotations (1) Vaginal delivery SNOMED Code(s): 343064404 Code(s): O80 - ENCOUNTER FOR FULL-TERM UNCOMPLICATED DELIVERY Status: Acute Current Visit: No - Problem List Review Problem List Initiated/Reviewed/Updated: Yes - My Orders Last 24 Hours: My Active Orders 09/17/20 Breakfast Regular Diet [DIET] - Assessment Assessment:: 34 year old s/p spontaneous vaginal delivery - Plan Plan:: Routine cares * Rh negative, rubella immune, GBS negative * COVID-19 negative * Encourage ambulation and fluid intake today * Regular diet as tolerated * PO pain medication ordered PRN * , nursing assistance as needed Dispo: stable. Anticipate routine course.
--- NOTE | 2020-09-18 08:13 | PCM.PNPP ---
- General Info Date of Service: 09/18/20 Functional Status: Reports: Pain Controlled, Tolerating Diet, Ambulating, Urinating - Review of Systems General: Reports: Fatigue. Denies: Fever, Weakness Pulmonary: Denies: Shortness of Breath Cardiovascular: Denies: Chest Pain, Palpitations, Lightheadedness Gastrointestinal: Denies: Abdominal Pain, Nausea, Vomiting Genitourinary: Denies: Flank Pain Musculoskeletal: Reports: No Symptoms Skin: Reports: No Symptoms Neurological: Reports: No Symptoms Psychiatric: Reports: No Symptoms - General Info Date of Service: 09/18/20 - Patient Data Vital Signs - Most Recent: Last Vital Signs Temp 35.9 C L 09/18/20 04:17 Pulse 75 09/18/20 04:17 Resp 16 09/18/20 04:17 BP 101/60 09/18/20 04:17 Pulse Ox 97 09/18/20 04:17 Weight - Most Recent: 86.636 kg Lab Results - Last 24 Hours: Laboratory Results - last 24 hr 09/17/20 09/17/20 09/18/20 Range/Units 01:32 01:32 05:58 Hgb 11.7 L (12.0-16.0) g/dL Hct 36.1 (36.0-46.0) % Cord ABG pH 7.277 (7.18-7.38) Cord ABG Base Excess -5 (-10--2) Cord VBG pH 7.304 (7.25-7.45) Cord VBG Base Excess -5 (-10--2) Med Orders - Current: Current Medications Acetaminophen (Tylenol Extra Strength) 500 mg PO Q4H PRN PRN Reason: Pain Acetaminophen (Tylenol Extra Strength) 1,000 mg PO Q4H PRN PRN Reason: Pain Benzocaine/Menthol (Dermoplast Pain Relief 20%-0.5% [place]) 78 gm TOP ASDIRECTED PRN PRN Reason: Perineal Comfort Measure Last Admin: 09/17/20 03:53 Dose: 1 can Documented by: Bisacodyl (Dulcolax) 10 mg RECTAL ONETIME PRN PRN Reason: Constipation Butorphanol Tartrate (Stadol) 1 mg IVPUSH Q1H PRN PRN Reason: Pain Carboprost Tromethamine (Hemabate Ds) 250 mcg IM ASDIRECTED PRN PRN Reason: Post Hemorrhage Docusate Sodium (Colace) 100 mg PO BID PRN PRN Reason: Constipation Emollient Ointment (Lansinoh Hpa) 0 gm TOP ASDIRECTED PRN PRN Reason: Sore Nipples Oxytocin/Sodium Chloride (Oxytocin 30 Unit/500 Ml-Ns) 30 unit in 500 mls @ 999 mls/hr IV TITRATE [facility] Last Admin: 09/17/20 01:34 Dose: 999 mls/hr Documented by: Tranexamic Acid 1,000 mg/ (Sodium Chloride) 110 mls @ 660 mls/hr IV ONETIME PRN PRN Reason: Bleeding Lactated Ringer's (Ringers, Lactated) 1,000 mls @ 150 mls/hr IV ASDIRECTED [facility] Last Admin: 09/16/20 21:10 Dose: 150 mls/hr Documented by: Ibuprofen (Motrin) 400 mg PO Q4H PRN PRN Reason: Pain Ibuprofen (Motrin) 800 mg PO Q6H PRN PRN Reason: Pain Lidocaine HCl (Xylocaine 1%) 50 ml INJECT ONETIME PRN PRN Reason: Laceration repair Methylergonovine Maleate (Methergine) 0.2 mg IM ASDIRECTED PRN PRN Reason: Post Hemorrhage Misoprostol (Cytotec) 200 mcg PO ONETIME PRN PRN Reason: Post Hemorrhage Nalbuphine HCl (Nubain) 10 mg IVPUSH Q1H PRN PRN Reason: Pain (severe 7-10) Oxycodone HCl (Oxycodone) 5 mg PO Q2H PRN PRN Reason: Pain Sodium Chloride (Saline Flush) 10 ml FLUSH ASDIRECTED PRN PRN Reason: Keep Vein Open Sodium Chloride (Saline Flush) 2.5 ml FLUSH ASDIRECTED PRN PRN Reason: Keep Vein Open Sodium Chloride (Normal Saline) 10 ml IV ASDIRECTED PRN PRN Reason: IV Use Sterile Water (Sterile Water For Irrigation) 1,000 ml IRR ASDIRECTED PRN PRN Reason: delivery Witch Greta (Tucks) 1 pad TOP ASDIRECTED PRN PRN Reason: comfort care Last Admin: 09/17/20 03:52 Dose: 1 tub Documented by: Discontinued Medications Fentanyl (Sublimaze) Confirm Administered Dose 100 mcg .ROUTE .STK-MED ONE Stop: 09/16/20 21:23 Last Admin: 09/16/20 22:36 Dose: Not Given Documented by: Ropivacaine (Naropin 0.2%) Confirm Administered Dose 100 mls @ as directed .ROUTE .STK-MED ONE Stop: 09/16/20 21:23 Last Admin: 09/16/20 22:36 Dose: Not Given Documented by: - Interaction Disposition, : [place] in Room with Family Support Person: - Recovery Exam Fundal Tone: Firm Fundal Level: 2 Fingerbreadths Below Umbilicus Fundal Placement: Midline Lochia Amount: Scant Lochia Color: Rubra/Red Perineum Description: Intact, Minimal Bruising/Swelling Episiotomy/Laceration: None Bladder Status: Voiding Urinary Elimination: Voided - Exam General: Alert, Oriented Lungs: Normal Respiratory Effort Cardiovascular: Regular Rate, Regular Rhythm GI/Abdominal Exam: Normal Bowel Sounds, Soft Extremities: Pedal Edema (trace). No: Eugene's Sign Skin: Warm, Dry, Intact Neurological: No New Focal Deficit Psy/Mental Status: Alert, Normal Affect, Normal Mood - Problem List & Annotations (1) Vaginal delivery SNOMED Code(s): 520781388 Code(s): O80 - ENCOUNTER FOR FULL-TERM UNCOMPLICATED DELIVERY Status: Acute Current Visit: No - Problem List Review Problem List Initiated/Reviewed/Updated: Yes - My Orders Last 24 Hours: My Active Orders 09/18/20 08:11 Ready for Discharge [RC] PER UNIT ROUTINE - Assessment Assessment:: 34 year old s/p spontaneous vaginal delivery - Plan Plan:: Patient doing well overall, VS and labs are reassuring. Would like to go home. Discharge instructions reviewed. Discharge to home.
[2020-09-18 08:44] VITALS: BP 114/68; PULSE 96
== END 2020-09-18 11:48 | disposition home or self-care (01) | DRG 807 ==
LOC: MW.OBCHECK 20:13 → MW.OB 20:13 → MW.OBCHECK 20:42 → MW.OB 20:42 → OBSVTOIN 09-17 01:32 → MW.OB 09-17 04:18
PROVIDERS: ADMIT Obstetrics & Gynecology; ATTEND Obstetrics & Gynecology
PROC: 10E0XZZ Delivery of Products of Conception, External Approach (ICD-10-PCS; principal; 2020-09-17)
PROC: 3E0R3BZ Introduction of Anesthetic Agent into Spinal Canal, Percutaneous Approach (ICD-10-PCS; 2020-09-17)
PROC: 00HU33Z Insertion of Infusion Device into Spinal Canal, Percutaneous Approach (ICD-10-PCS; 2020-09-17)
DX: O69.81X0 Labor and delivery complicated by cord around neck, without compression, not applicable or unspecified (principal); Z37.0 Single live birth; Z3A.39 39 weeks gestation of pregnancy; O77.0 Labor and delivery complicated by meconium in amniotic fluid; Z20.822 Contact with and (suspected) exposure to COVID-19
CPT/HCPCS: 01967; 36415; 51702; 59025; 59409; 82803; 85014; 85018; 85027; 86592; 86850; 86870; 86900; 86901; A9270-GY; J2590; J2795; J3010; J7120; U0002